=== PATIENT | female | born 1960 | race Caucasian/White ===

== ENCOUNTER → 2017-05-23 | Outpatient (CLI) | payer BC ==
[~2017-05-23] MED LIST: CHOLTAB3 PO; PRVC/20 PO
--- NOTE | 2017-05-24 15:17 | MAMMOGRAPHY REPORT ---
BILATERAL DIGITAL SCREENING MAMMOGRAM TOMOSYNTHESIS WITH CAD: 05/23/2017 CLINICAL HISTORY: Routine screening. TECHNIQUE: Breast tomosynthesis in addition to standard 2D mammography was performed. Current study was also evaluated with a Computer Aided Detection (CAD) system. COMPARISON: Comparison is made to exams dated: 05/20/2016 mammogram, 05/19/2015 mammogram, 4 mammogram, 05/17/2014 mammogram, 04/25/2013 mammogram, and 04/24/2012 mammogram - [facility]. BREAST COMPOSITION: The tissue of both breasts is heterogeneously dense, which may obscure small mas ses. FINDINGS: The parenchymal pattern is unchanged. No developing mass, architectural distortion or clus ter of suspicious microcalcifications is seen in either breast. IMPRESSION: ACR BI-RADS CATEGORY 2: BENIGN There is no mammographic evidence of malignancy. A 1 year screening mammogram is recommended. The pa tient will receive written notification of the results. Approximately 10% of breast cancers are not detected with mammography. A negative mammographic report should not delay biopsy if a clinically suggestive mass is present. Mireya Willis M.D. ay/:05/23/2017 16:37:49 Mail Opener: Niesha CORREA(R)(M), [facility] letter sent: Normal 1/2 BI-RADS Code: ACR BI-RADS Category 2: Benign
== END | disposition home or self-care (01) ==
LOC: C.MAMM 15:14
PROVIDERS: ATTEND Internal Medicine
DX: Z12.31 Encounter for screening mammogram for malignant neoplasm of breast (principal)

== ENCOUNTER → 2017-07-13 | Outpatient (CLI) | payer BC | END | disposition home or self-care (01) | LOC: C.PAPS 10:05 | PROVIDERS: ATTEND Obstetrics & Gynecology | DX: Z01.419 Encounter for gynecological examination (general) (routine) without abnormal findings (principal) ==

== ENCOUNTER 2024-03-03 10:28 | Inpatient (IN) ==
--- NOTE | 2024-03-03 11:58 | Emergency Department Note ---
Impression & Plan Abdominal pain, lower, Diverticulitis ED Provider Note NAME: JITENDRA GUTIERREZ AGE: 63 SEX: Female INFORMANT: Patient ED PROVIDER(S): Orestes Cook MD CHIEF COMPLAINT: Abdominal pain PLAN: Disposition: Admitted Outpatient prescription management: none Referral: None MEDICAL DECISION MAKING: Patient presented because of abdominal pain. She declined analgesia. CT imaging with contrast was ordered. Her laboratory testing was unremarkable. Patient was found to have worsening diverticulitis with possible mural abscess versus microperforation. Clinically she is doing well and is nonseptic. She does not have a surgical abdomen. She was given IV Zosyn. Due to the findings of worsening diverticulitis IV antibiotics are indicated. Patient and briefed. Consultation was made with Dr. Alberto Treviño of the [facility] service. Patient was evaluated in the ER for further management. Care/management discussed with: special events manager Level of care consideration(s): After review of the information above and other included data, I feel the patient requires escalation of care to admission Triage Nursing notes: reviewed and agree them. Vital Signs: reviewed and remarkable for no significant abnormalities Additional History obtained from: none Chronic Medical/Social Conditions affecting care: none Prior/ Outside/ External records reviewed: Primary care visit from 02/[address] imaging ordered patient started on Augmentin. Outpatient CT imaging revealed diverticulitis without abscess Differential Diagnosis: Worsening diverticulitis, renal colic, UTI, appendicitis, mesenteric ischemia, aortic pathology, infections, inflammatory bowel disease, PUD, biliary pathology, as well as other pathologies. Diagnostics, independently interpreted by me: ECG: none Cardiac Monitoring: none Medical decision rules: none Imaging studies: CT scan as above. I refer you to the EMR for further details. HPI: 63 year old Female arrives for evaluation of abdominal pain. This started earlier this week and is diagnosed as diverticulitis. Patient states the last 2 nights symptoms have worsened with more intense pain described as lower abdominal cramping. The patient also notes the following associated symptoms, poor appetite. The patient has been prescribed Augmentin for relieving factors. Current pain is rated as 6/10. Pt denies LOC, headache, fevers, chills, diaphoresis, visual changes, neck pain, chest pain, breathing difficulties, nausea, vomiting, back pain, melena, hematochezia, urinary symptoms, numbness, weakness, lymphadenopathy, rash, or other complaints.. PAST MEDICAL HISTORY: See Below, diverticulitis, diverticulosis PAST SURGICAL HISTORY: See Below, SOCIAL HISTORY: See Below, HOME MEDICATIONS: See Below ALLERGIES: See Below VITALS: See Below PHYSICAL EXAMINATION: GENERAL: Awake, alert, uncomfortable-appearing, in no distress HENT: Normocephalic, atraumatic. Oropharynx unremarkable. EYES: Normal conjunctiva. Sclera non-icteric. NECK: Inspection normal. Non-tender. Supple. No nuchal rigidity. FROM. No masses. RESPIRATORY: Clear to auscultation. No wheezes. No rales. Normal respiratory effort. CARDIAC: Normal rate. Normal rhythm. No murmurs. No rubs. Extremities warm and well perfused. Pulses equal. No JVD. GI: Soft, non-distended. Lower abdominal tenderness to palpation. No rebound or guarding. No masses. RECTAL: Deferred. MUSCULOSKELETAL: Atraumatic. Chest examination reveals no tenderness. The back is symmetrical on inspection without obvious abnormality. There is no CVA tenderness to palpation. No joint edema. LOWER EXTREMITIES: Calves are equal size bilaterally and non-tender. No edema. No discoloration. NEURO: Normal sensorium. No sensory or motor deficits noted. SKIN: No rash or jaundice noted. PROCEDURES: none CRITICAL CARE: none OBSERVATION NOTE: none Past Med/Surg History Problem List (Updated 03/03/24 @ 11:58 by Orestes Cook MD) Diverticulitis (Acute) Abdominal pain, lower (Acute) Leukopenia Postmenopausal History of colon polyps Bilateral bunions Hyperlipidemia (Acute) Diverticulosis (Acute) Carmichael angioma (Acute) Disc degeneration, lumbar (Acute) Esophageal reflux (Acute) Lichen simplex chronicus (Acute) Rectocele (Acute) Seborrheic keratosis (Acute) Medical History Postmenopausal Arthritis History of diverticulitis Hyperlipidemia Rectocele Seborrheic keratosis Diverticular disease Surgical History Ava teeth removed History of colonoscopy Family History Aunt Diabetes Sister Hypertension Leukemia Malignant neoplasm of uterus Myocardial infarction Mother Pure hypercholesterolemia Hypertension Family history of heart disease Myocardial infarction Father Heart disease Family history of heart disease Myocardial infarction Family/Other No problems noted. Other COPD (chronic obstructive pulmonary disease) No family history of adverse response to anesthesia Denies family history of Ovarian cancer Prostate cancer Breast cancer Colorectal cancer Social History Smoking Status: Never smoker Second Hand Exposure: Yes ( A CHILD); Do You Dip or Chew Tobacco: No; Hx Alcohol Use: Yes Alcohol type: beer, wine and hard liquor Hx Substance Use: No Preferred Language: Thai Communication Ability: Effective Hearing Ability: Normal Auto Locator Required: No Beliefs That Will Affect Care: None marital status: Current Living Situation: Spouse current occupational status: retired Feels Safe at Home: Yes Childhood Exposure to Second-Hand Smoke: Yes Diet: other Diet Comment: intermittent fasting caffeine: Yes Dental Care, Regularly: Yes Physical Activity Frequency: 3-4 Times per Week Seatbelt Use: always Sunscreen Use: Yes Assistive Devices: Contacts and Glasses Allergies Allergies Allergy/AdvReac Type Severity Reaction Status Date / Time latex Allergy Mild SKIN Verified 02/28/24 14:16 IRRITATION sulfamethoxazole AdvReac Mild Nausea Verified 02/28/24 14:16 trimethoprim AdvReac Mild Nausea Verified 02/28/24 14:16 Bactrim AdvReac Unknown Nausea Verified 11/14/14 22:40 Home Meds Home Medications Medication Instructions Recorded Confirmed cholecalciferol (vitamin D3) 50 2,000 unit PO QAM 10/11/18 03/03/24 mcg (2,000 unit) capsule (Vitamin D3) cyanocobalamin (vitamin B-12) 500 500 mcg PO QAM 07/22/21 03/03/24 mcg tablet melatonin 3 mg tablet 5 mg PO HS 09/02/22 03/03/24 Previous Rx's Medication Instructions Recorded diclofenac sodium 1 % topical gel 2 g topical QID PRN pain #100 grams 05/04/22 (Arthritis Pain (diclofenac)) rosuvastatin 20 mg tablet 20 mg PO DAILY #90 tabs 04/07/23 amoxicillin 875 mg-potassium 1 tab PO BID 10 days #20 tabs 02/28/24 clavulanate 125 mg tablet Results & Data (ED) Vital Signs Vital Signs - 24 hr 08/03/24 10:34 03/03/24 11:44 03/03/24 13:10 Temperature 36.8 C Temperature Source Oral Pulse Rate 83 Pulse Rate [Apical] 70 65 Pulse Rhythm Regular Pulse Strength Normal Respiratory Rate 18 12 14 Respiratory Effort / Characteristics Non-Labored Spontaneous Respiratory Depth Normal Respiratory Pattern Regular Blood Pressure 129/86 Blood Pressure [Right Arm] 141/82 H 131/75 Blood Pressure Mean 100 Blood Pressure Mean [Right Arm] 101 93 Blood Pressure Position Sitting Pulse Oximetry 99 96 95 Oxygen Delivery Method Room Air Room Air Room Air Sepsis Recent Fever Within 48 Hours No Sepsis New/Unexplained Change in Mental Status No Sepsis Action Taken by Nursing No Action Required 03/03/24 14:53 Temperature Temperature Source Pulse Rate Pulse Rate [Apical] 56 L Pulse Rhythm Pulse Strength Respiratory Rate 14 Respiratory Effort / Characteristics Respiratory Depth Respiratory Pattern Blood Pressure Blood Pressure [Right Arm] 132/79 Blood Pressure Mean Blood Pressure Mean [Right Arm] 96 Blood Pressure Position Pulse Oximetry 96 Oxygen Delivery Method Room Air Sepsis Recent Fever Within 48 Hours Sepsis New/Unexplained Change in Mental Status Sepsis Action Taken by Nursing Laboratory Data 03/03/24 11:40 03/03/24 11:40 Lab Results 03/03/24 03/03/24 Range/Units 11:40 11:45 WBC 8.02 (4.8-10.8) K/ul RBC 4.28 (4.20-5.40) M/uL Hgb 12.6 (12.0-16.0) g/dl Hct 37.8 (37.0-47.0) % MCV 88.3 (80.0-100.0) fL MCH 29.4 (25.0-34.0) pg MCHC 33.3 (32.0-36.0) g/dL RDW Std Deviation 40.4 (36.4-46.3) fL RDW Coeff of Brad 12.4 (11.5-14.5) % Plt Count 260 (130-400) K/uL MPV 10.2 (9.4-12.4) fL Immature Gran % (Auto) 0.1 % Neut % (Auto) 76.5 % Lymph % (Auto) 12.1 % [place] % (Auto) 10.6 % Eos % (Auto) 0.6 % Baso % (Auto) 0.1 % Neut # (Auto) 6.13 (1.40-6.50) K/uL Lymph # (Auto) 0.97 L (1.20-3.40) K/uL [place] # (Auto) 0.85 H (0.11-0.59) K/uL Eos # (Auto) 0.05 (0.00-0.50) K/uL Baso # (Auto) 0.01 (0.00-0.20) K/uL Immature Gran # (Auto) 0.01 (0.01-0.20) K/uL Sodium 135 L (136-145) mmol/L Potassium 4.0 (3.5-5.1) mmol/L Chloride 101 (98-107) mmol/L Carbon Dioxide 25 (21-32) mmol/L Anion Gap 9 (3-11) BUN 16 (6-23) mg/dl Creatinine 0.86 (0.6-1.2) mg/dl Est Cr Clr Drug Dosing 56.3 ml/min Est GFR ( Amer) 82.2 ml/min Est GFR (Non-Af Amer) 70.9 ml/min BUN/Creatinine Ratio 18.6 (10-20) Glucose 88 (70-99(Fasting)) mg/dl Calcium 9.2 (8.6-10.3) mg/dl Total Bilirubin 0.4 (0.2-1.0) mg/dl AST 23 (13-39) U/L ALT 15 (7-52) U/L Alkaline Phosphatase 86 (34-104) U/L Total Protein 7.6 (6.0-8.3) gm/dl Albumin 3.9 (3.4-5.0) gm/dl Globulin 3.7 (2.5-4.0) gm/dl Albumin/Globulin Ratio 1.1 (0.9-2) Lipase 21 (11-82) U/L Urine Color Dark Yellow Urine Appearance Clear (Clear) Urine pH 5.5 (4.5-7.5) Ur Specific [place] 1.027 (1.000-1.030) Urine Protein Trace H (Negative) Urine Glucose (UA) Negative (Negative) Urine Ketones Trace H (Negative) Urine Blood Negative (Negative) Urine Nitrite Negative (Negative) Urine Bilirubin 1+ H (Negative) Urine Urobilinogen Negative (Negative) Ur Leukocyte Esterase 2+ H (Negative) Urine WBC (Auto) 6-10 H (0-5) /hpf Urine RBC (Auto) 3-5 H (0-2) /hpf U Hyaline Cast (Auto) 0-2 (0-2) /lpf U Epithel Cells (Auto) 3-5 H (0-2) /hpf Urine Bacteria (Auto) None Seen (None Seen) Administered Medications Lactated Ringer's (Lr) 1,000 mls @ 100 mls/hr IV .Q10H PATRICIA Stop: 03/04/24 20:29 Last Admin: 03/03/24 14:51 Dose: 100 mls/hr Documented By: VESNA Discontinued Medications Piperacillin Sod/Tazobactam Sod (Zosyn) 4.5 gm in 100 mls @ 200 mls/hr IV NOW ONE Stop: 03/03/24 14:17 Last Infusion: 03/03/24 14:30 Dose: Infused Documented By: Admin: 03/03/24 14:00 Dose: 200 mls/hr Documented By: VESNA Ioversol (Optiray 320 100ml) 94 ml IV ONCE ONE Stop: 03/03/24 13:21 Last Admin: 03/03/24 13:20 Dose: 94 ml Documented By: LAINE Imaging Data Radiologist's Impression: Abdomen/Pelvis CT 03/03/24 10:56 CT abd pelvis oral and IV con CLINICAL HISTORY: L abd pain, diverticulitis on recent ct. ?Abscess TECHNIQUE: Helical axial images of the abdomen and pelvis were obtained and displayed. Automated dose lowering techniques and/or adjustment according to patient size were utilized for this exam. This exam was performed with intravenous contrast. CT DOSE: 701. mGy.cm COMPARISON: Comparison is made to CT abdomen pelvis 02/28/2024 FINDINGS: Lower chest: No acute abnormality. Liver: Focal fatty changes are noted about the falciform ligament. Gallbladder and biliary tree: A phrygian cap is incidentally noted. Gallbladder is otherwise unremarkable. No intra- or extrahepatic biliary ductal dilation. Pancreas: Unremarkable, no focal lesions. Spleen: Unremarkable. Adrenals: Unremarkable. Kidneys and ureters: Unremarkable. Bladder: Diffuse homogeneous wall thickening is seen. Reproductive organs: Unremarkable. Bowel: Diverticulosis is seen with wall thickening and a pericolonic fluid collection with surrounding fat stranding in the sigmoid flexure. The appendix is normal. Lymph nodes Retroperitoneal: Unremarkable. Pelvic: Unremarkable. Mesenteric: Unremarkable. Peritoneum: Increased vascularity and fat stranding is seen in the pelvis. There is a 28 x 16 mm fluid collection superior to the inflamed diverticulum in the sigmoid colon. Vessels: Unremarkable. Abdominal wall: Unremarkable. Bones: Degenerative changes in the visualized spine. IMPRESSION: Findings compatible with diverticulitis, now with a mural abscess versus contained perforation. ACT 112: Negative or not required by law. Electronically signed by: Ramu Moreland M.D. 03/03/2024 1:33 PM Discharge Plan Visit Data Chief Complaint: Abdominal Pain Stated Complaint: ABDOMINAL PAIN ED Provider: Orestes Cook Discharge Problem: Abdominal pain, lower, Diverticulitis Forms Stand Alone Forms: [employer] Prescriptions Prescriptions: No Action rosuvastatin 20 mg tablet 20 mg PO DAILY Qty: 90 3RF diclofenac sodium [Arthritis Pain (diclofenac)] 1 % gel 2 g topical QID PRN (Reason: pain) Qty: 100 2RF Rx Instructions: no fill history available apply to single elbow, wrist or hand; for hand includes palm/fingers/back of hand amoxicillin-pot clavulanate 875-125 mg tablet 1 tab PO BID 10 Days Qty: 20 0RF cholecalciferol (vitamin D3) [Vitamin D3] 2,000 unit Capsule 2,000 unit PO QAM Rx Instructions: otc, unable to verify cyanocobalamin (vitamin B-12) 500 mcg Tablet 500 mcg PO QAM Rx Instructions: otc, unable to verify melatonin 3 mg tablet 5 mg PO HS Rx Instructions: otc, unable to verify Referrals Referrals: Jorge Rivera MD [Primary Care Provider] -
[2024-03-03 12:11] LABS: Basophils # (auto) 0.01 K/uL (0.00-0.20); Basophils % (auto) 0.1 %; Eosinophils # (auto) 0.05 K/uL (0.00-0.50); Eosinophils % (auto) 0.6 %; Hematocrit (blood only) 37.8 % (37.0-47.0); Hemoglobin 12.6 g/dl (12.0-16.0); Immature Granulocytes # (auto) 0.01 K/uL (0.01-0.20); Immature Granulocytes % (auto) 0.1 %; Lymphocytes # (auto) 0.97 K/uL (1.20-3.40); Lymphocytes % (auto) 12.1 %; Mean Corpuscular Hemoglobin 29.4 pg (25.0-34.0); Mean Corpuscular Hgb Conc 33.3 g/dL (32.0-36.0); Mean Corpuscular Volume 88.3 fL (80.0-100.0); Mean Platelet Volume 10.2 fL (9.4-12.4); Monocytes # (auto) 0.85 K/uL (0.11-0.59); Monocytes % (auto) 10.6 %; Neutrophils # (auto) 6.13 K/uL (1.40-6.50); Neutrophils % (auto) 76.5 %; Platelet Count 260 K/uL (130-400); RDW Coefficient of Variation 12.4 % (11.5-14.5); RDW Standard Deviation 40.4 fL (36.4-46.3); Red Blood Count 4.28 M/uL (4.20-5.40); White Blood Count 8.02 K/ul (4.8-10.8)
[2024-03-03 12:12] LABS: Appearance Urine Clear (Clear); Bacteria Urine Automated None Seen (None Seen); Bilirubin Urine 1+ (Negative); Blood Urine Negative (Negative); Cast Urine Automated 0-2 /lpf (0-2); Color Urine Dark Yellow; Glucose Urine UA Negative (Negative); Ketones Urine Trace (Negative); Leukocyte Esterase Urine 2+ (Negative); Nitrite Urine Negative (Negative); Protein Urine Trace (Negative); Specific Gravity Urine 1.027 (1.000-1.030); Urobilinogen Urine Negative (Negative); pH Urine 5.5 (4.5-7.5)
[2024-03-03 12:13] LABS: Albumin Globulin Ratio 1.1 (0.9-2); Albumin Level 3.9 gm/dl (3.4-5.0); BUN Creatinine Ratio 18.6 (10-20); Bilirubin,Total 0.4 mg/dl (0.2-1.0); Calcium 9.2 mg/dl (8.6-10.3); Creatinine Clr Calc Pharmacy 56.3 ml/min; Est GFR (African American) 82.2 ml/min; Est GFR (Non-African American) 70.9 ml/min; Globulin 3.7 gm/dl (2.5-4.0); Total Protein 7.6 gm/dl (6.0-8.3)
[2024-03-03] MEDS: OPTIRAY 320 100ml IV ONE (13:20)
--- NOTE | 2024-03-03 13:34 | CT Scan Report ---
CT abd pelvis oral and IV con CLINICAL HISTORY: L abd pain, diverticulitis on recent ct. ?Abscess TECHNIQUE: Helical axial images of the abdomen and pelvis were obtained and displayed. Automated dose lowering techniques and/or adjustment according to patient size were utilized for this exam. This e xam was performed with intravenous contrast. CT DOSE: 701. mGy.cm COMPARISON: Comparison is made to CT abdomen pelvis 02/28/2024 FINDINGS: Lower chest: No acute abnormality. Liver: Focal fatty changes are noted about the falciform ligament. Gallbladder and biliary tree: A phrygian cap is incidentally noted. Gallbladder is otherwise unremark able. No intra- or extrahepatic biliary ductal dilation. Pancreas: Unremarkable, no focal lesions. Spleen: Unremarkable. Adrenals: Unremarkable. Kidneys and ureters: Unremarkable. Bladder: Diffuse homogeneous wall thickening is seen. Reproductive organs: Unremarkable. Bowel: Diverticulosis is seen with wall thickening and a pericolonic fluid collection with surroundin g fat stranding in the sigmoid flexure. The appendix is normal. Lymph nodes Retroperitoneal: Unremarkable. Pelvic: Unremarkable. Mesenteric: Unremarkable. Peritoneum: Increased vascularity and fat stranding is seen in the pelvis. There is a 28 x 16 mm flui d collection superior to the inflamed diverticulum in the sigmoid colon. Vessels: Unremarkable. Abdominal wall: Unremarkable. Bones: Degenerative changes in the visualized spine. IMPRESSION: Findings compatible with diverticulitis, now with a mural abscess versus contained perforation. ACT 112: Negative or not required by law. Electronically signed by: Ramu Moreland M.D. 03/03/2024 1:33 PM
[2024-03-03] MEDS: PIPERACILLIN/TAZOBACTAM 4.5 GM/100 ML BAG IV ONE (14:00)
--- NOTE | 2024-03-03 14:01 | History & Physical Report ---
Date of Service March 03, 2024 Assessment & Plan (1) Diverticulitis: Plan: Worsening abdominal pain that began on Sunday 02/25 History of diverticulitis Patient was diagnosed with diverticulitis outpatient, and was placed on amoxicillin BID on 02/27 Failure of outpatient treatment A/P CT revealed diverticulitis with mural abscess versus contained perforation No leukocytosis on arrival; however patient reports fevers up to 100 degrees Fahrenheit at home Supportive care Keep n.p.o. for now, and advance to trial of clear liquid diet as tolerated LR at 100 mL/hr x 3 L Acetaminophen as needed for pain/fever Ciprofloxacin 400 mg IV q12h Metronidazole 500 mg IV q8h A.m. CBC, BMP, mag (2) Hyperlipidemia: Plan: Continue rosuvastatin Plan Disposition: Admit to [facility] Full code N.p.o. for now VTE PPx: Lovenox 40mg SQ q24h History of Present Illness Chief Complaint: Abdominal Pain Primary Care Provider: Jorge Rivera MD Brianne is a pleasant 63-year-old female with PMH of rectocele, esophageal reflux, diverticulosis, hyperlipidemia, and lichen simplex chronicus. She presented for worsening abdominal pain that has been present since Sunday 02/25. The pain is located in her right lower abdomen transversely across both quadrants. It began as abdominal discomfort, but has gradually worsened. She went to the doctors on Tuesday 02/27 and was prescribed Augmentin. However there might have been a mixup at the pharmacy as she has been taking amoxicillin twice daily. Patient then began to develop fevers on Thursday 03/01 (low-grade, around 100 F). Patient has been taking Tylenol which helps with with the fever and abdominal cramping. She does have a history of diverticulitis in the past; last episode was in 2018. She rates her abdominal pain 0/10 at present, but 8/10 at worst. The pain waxes and wanes, and she characterizes as a "childbirth"-like cramping. Pain is exacerbated after eating and when she lays on her right side. No history of abdominal surgeries. Patient is still passing gas. Last BM was yesterday; she reports she had small/hard stool. She has had ongoing constipation. Patient denies smoking, tobacco use, recent alcohol use. Patient's vitals are stable at time of mission. ED course: Zosyn 4.5 g IV ROS: Patient endorses intermittent fever, chills, fatigue, WHITE, dry cough, low transverse abdominal pain, constipation, and bloating. Patient denies night-sweats, dizziness, lightheadedness, chest pain, SOB, chest palpitations, N/V/D, changes in urinary habits, burning with urination, or blood in the urine/stool. Allergies Allergy/AdvReac Type Severity Reaction Status Date / Time latex Allergy Mild SKIN Verified 02/28/24 14:16 IRRITATION sulfamethoxazole AdvReac Mild Nausea Verified 02/28/24 14:16 trimethoprim AdvReac Mild Nausea Verified 02/28/24 14:16 Bactrim AdvReac Unknown Nausea Verified 11/14/14 22:40 Home Medications Medication Instructions Recorded Confirmed Type cholecalciferol (vitamin D3) 50 2,000 unit PO QAM 10/11/18 03/03/24 History mcg (2,000 unit) capsule (Vitamin D3) cyanocobalamin (vitamin B-12) 500 500 mcg PO QAM 07/22/21 03/03/24 History mcg tablet diclofenac sodium 1 % topical gel 2 g topical QID PRN pain #100 grams 05/04/22 03/03/24 Rx (Arthritis Pain (diclofenac)) melatonin 3 mg tablet 5 mg PO HS 09/02/22 03/03/24 History rosuvastatin 20 mg tablet 20 mg PO DAILY #90 tabs 04/07/23 03/03/24 Rx amoxicillin 875 mg-potassium 1 tab PO BID 10 days #20 tabs 02/28/24 03/03/24 Rx clavulanate 125 mg tablet Past Med/Surg History Problem List (Updated 03/03/24 @ 11:58 by Orestes Cook MD) Diverticulitis (Acute) Abdominal pain, lower (Acute) Leukopenia Postmenopausal History of colon polyps Bilateral bunions Hyperlipidemia (Acute) Diverticulosis (Acute) Carmichael angioma (Acute) Disc degeneration, lumbar (Acute) Esophageal reflux (Acute) Lichen simplex chronicus (Acute) Rectocele (Acute) Seborrheic keratosis (Acute) Medical History Postmenopausal Arthritis History of diverticulitis Hyperlipidemia Rectocele Seborrheic keratosis Diverticular disease Surgical History [place] teeth removed History of colonoscopy Family History Aunt Diabetes Sister Hypertension Leukemia Malignant neoplasm of uterus Myocardial infarction Mother Pure hypercholesterolemia Hypertension Family history of heart disease Myocardial infarction Father Heart disease Family history of heart disease Myocardial infarction Family/Other No problems noted. 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 Beliefs That Will Affect Care: None marital status: Current Living Situation: Spouse current occupational status: retired Other Information That Helps Us Care for You: No Feels Safe at Home: Yes Childhood Exposure to Second-Hand Smoke: Yes Diet: other Diet Comment: intermittent fasting caffeine: Yes Dental Care, Regularly: Yes Physical Activity Frequency: 3-4 Times per Week Seatbelt Use: always Sunscreen Use: Yes Assistive Devices: Contacts Review of Systems Review of Systems: See HPI above Physical Exam Physical Exam: General: no acute distress; pleasant affect; non-toxic appearing; well- nourished; cooperative; SpO2 95% on RA HEENT: normocephalic, atraumatic; no scleral icterus; PERRLA w/ EOMs intact; vision and hearing grossly intact Neck: supple; no lymphadenopathy; trachea midline Skin: warm, dry without signs of tenting; no cyanosis; no rashes, bruising, lesions, or erythema noted CV: chest wall NTP; RRR; S1/S2 normal; no murmurs/rubs/gallops; pulses intact and symmetric at radial, DP, and PT Lungs: no acute respiratory distress; symmetrical chest wall expansion; clear breath sounds across all lung giordano w/o adventitious sounds; no wheezing ABD: Soft; RLQ and LLQ are TTP: BS present; no rebound/guarding; no distention MSK: no tics or fasciculations; no edema noted in the LEs b/l, nonerythematous Neuro: A&Ox3; normal mood and affect; fluent speech; no focal deficits; sensation grossly intact in the LEs b/l Results & Data Results & Data Vital Signs (Past 12 Hours) Vital Signs Temp Pulse Pulse Resp BP BP Pulse Ox 03/03/24 13:10 65 14 131/75 95 03/03/24 11:44 70 12 141/82 H 96 03/03/24 10:34 36.8 C 83 18 129/86 99 O2 Del Method 03/03/24 13:10 Room Air 03/03/24 11:44 Room Air 03/03/24 10:34 Room Air Laboratory Results Abnormal lab results 03/03/24 03/03/24 Range/Units 11:40 11:45 Lymph # (Auto) 0.97 L (1.20-3.40) K/uL Heard # (Auto) 0.85 H (0.11-0.59) K/uL Sodium 135 L (136-145) mmol/L Urine Protein Trace H (Negative) Urine Ketones Trace H (Negative) Urine Bilirubin 1+ H (Negative) Ur Leukocyte Esterase 2+ H (Negative) Urine WBC (Auto) 6-10 H (0-5) /hpf Urine RBC (Auto) 3-5 H (0-2) /hpf U Epithel Cells (Auto) 3-5 H (0-2) /hpf Diagnostic Findings Abdomen/Pelvis CT 03/03/24 10:56 CT abd pelvis oral and IV con CLINICAL HISTORY: L abd pain, diverticulitis on recent ct. ?Abscess TECHNIQUE: Helical axial images of the abdomen and pelvis were obtained and displayed. Automated dose lowering techniques and/or adjustment according to patient size were utilized for this exam. This exam was performed with intravenous contrast. CT DOSE: 701. mGy.cm COMPARISON: Comparison is made to CT abdomen pelvis 02/28/2024 FINDINGS: Lower chest: No acute abnormality. Liver: Focal fatty changes are noted about the falciform ligament. Gallbladder and biliary tree: A phrygian cap is incidentally noted. Gallbladder is otherwise unremarkable. No intra- or extrahepatic biliary ductal dilation. Pancreas: Unremarkable, no focal lesions. Spleen: Unremarkable. Adrenals: Unremarkable. Kidneys and ureters: Unremarkable. Bladder: Diffuse homogeneous wall thickening is seen. Reproductive organs: Unremarkable. Bowel: Diverticulosis is seen with wall thickening and a pericolonic fluid collection with surrounding fat stranding in the sigmoid flexure. The appendix is normal. Lymph nodes Retroperitoneal: Unremarkable. Pelvic: Unremarkable. Mesenteric: Unremarkable. Peritoneum: Increased vascularity and fat stranding is seen in the pelvis. There is a 28 x 16 mm fluid collection superior to the inflamed diverticulum in the sigmoid colon. Vessels: Unremarkable. Abdominal wall: Unremarkable. Bones: Degenerative changes in the visualized spine. IMPRESSION: Findings compatible with diverticulitis, now with a mural abscess versus contained perforation. ACT 112: Negative or not required by law. Electronically signed by: Ramu Moreland M.D. 03/03/2024 1:33 PM ECG Additional Comments: ECG ordered, pending Code Status & VTE Plan Code Status Full code VTE Prophylaxis Plan VTE Prophylaxis will be ordered: Yes Supervising Physician Co-Signing Physician Notes Attending addendum: I have physically seen this patient, have supervised the CLIFTON's activities, and agree with the H&P unless as otherwise noted. Assessment and Plan: Diverticulitis- Patient has been started on amoxicillin twice daily on 02/27 A diagnosis in the outpatient setting Due to worsening abdominal pain patient presented to the ED for assessment this evening CT scan abdomen pelvis shows diverticulitis, now with mural abscess versus contained perforation N.p.o. LR at 100 mL/h Acetaminophen 1 g IV every 8 hours as needed for mild pain or fever Cipro 400 mg IV 12 hours Metronidazole 500 mg IV every 8 hours Zofran 4 mg IV every 6 hours as needed Pantoprazole 40 mg IV daily Follow serial CBC with differential, CHEM PG Care Time/CCT Total # of Minutes Spent Total Time Spent with Patient: Total time spent is greater than 50% in coordination of care (as documented) at patient's floor/unit and/or counseling patient: C[place] [address] INT INP/OBS CARE 255MIN Patient Type Established History Comprehensive Exam Comprehensive Medical Decision Making Moderate Complexity Diagnoses Diverticulitis K57.92 Hyperlipidemia E78.5
[2024-03-03] MEDS: LACTATED RINGER'S 1,000 ML IV SCH (14:51)
[2024-03-03] MEDS ORDERED: HYDROmorphone INJ 1 MG/ML SYRINGE IV PRN (16:54)
[2024-03-03] MEDS ORDERED: HYDROmorphone INJ 0.5 MG/0.5 ML SYR IV PRN (16:54)
[2024-03-03] MEDS ORDERED: DICLOFENAC SOD 1% GEL 100 GM TUBE EXT PRN (16:54)
[2024-03-03] MEDS: ENOXAPARIN INJ 40 MG/0.4 ML SYR SQ SCH (20:12)
[2024-03-03] MEDS: CIPROFLOXACIN / D5W 400 MG/200 ML BAG IV SCH (20:12)
[2024-03-03] MEDS: metroNIDAZOLE 500 MG/100 ML BAG IV SCH (20:12)
[2024-03-03] MEDS ORDERED: MELATONIN 3 MG TAB PO SCH (21:00)
[2024-03-03] MEDS ORDERED: ROSUVASTATIN CALCIUM 20 MG TAB PO SCH (21:00)
[2024-03-03] MEDS: LACTATED RINGER'S 1,000 ML IV ONE (22:53)
[2024-03-04] MEDS: ACETAMINOPHEN 1,000 MG/100 ML VIAL IV PRN (03:04)
[2024-03-04] MEDS: MELATONIN 3 MG TAB PO PRN (03:19)
[2024-03-04 05:51] LABS: Basophils # (auto) 0.02 K/uL (0.00-0.20); Basophils % (auto) 0.3 %; Eosinophils # (auto) 0.01 K/uL (0.00-0.50); Eosinophils % (auto) 0.1 %; Hematocrit (blood only) 31.8 % (37.0-47.0); Hemoglobin 10.5 g/dl (12.0-16.0); Immature Granulocytes # (auto) 0.02 K/uL (0.01-0.20); Immature Granulocytes % (auto) 0.3 %; Lymphocytes # (auto) 1.13 K/uL (1.20-3.40); Lymphocytes % (auto) 16.2 %; Mean Corpuscular Hemoglobin 28.9 pg (25.0-34.0); Mean Corpuscular Volume 87.6 fL (80.0-100.0); Monocytes # (auto) 0.64 K/uL (0.11-0.59); Monocytes % (auto) 9.2 %; Neutrophils # (auto) 5.17 K/uL (1.40-6.50); Neutrophils % (auto) 73.9 %; Platelet Count 225 K/uL (130-400); RDW Coefficient of Variation 12.2 % (11.5-14.5); RDW Standard Deviation 39.5 fL (36.4-46.3); Red Blood Count 3.63 M/uL (4.20-5.40); White Blood Count 6.99 K/ul (4.8-10.8)
[2024-03-04 06:06] LABS: BUN Creatinine Ratio 14.1 (10-20); Calcium 8.8 mg/dl (8.6-10.3); Est GFR (African American) 83.3 ml/min; Est GFR (Non-African American) 71.9 ml/min; Magnesium 1.8 mg/dl (1.7-2.4); Potassium 3.8 mmol/L (3.5-5.1)
--- NOTE | 2024-03-04 07:06 | Electrocardiogram Report ---
Test Reason : Blood Pressure : / mmHG Vent. Rate : 060 BPM Atrial Rate : 060 BPM P-R Int : 168 ms QRS Dur : 072 ms QT Int : 414 ms P-R-T Axes : 062 010 054 degrees QTc Int : 414 ms Normal sinus rhythm Normal ECG When compared with ECG of 14-NOV-2014 19:22, No significant change was found Confirmed by Jorge Tafoya ([id number]) on 03/04/2024 7:06:31 AM Referred By: REFERRED SELF Confirmed By:Morgan Tafoya
--- NOTE | 2024-03-04 10:19 | Surgery Consultation ---
Date of Consultation March 04, 2024 Assessment & Plan (1) Diverticulitis: Diverticulitis unresponsive to outpatient oral medications, possible small intramural abscess, no indication for surgery at this time Continue IV antibiotics Advance to clear liquids Will need 10 to 14-day course of antibiotics Follow-up as outpatient History of Present Illness Attending Physician: Erlin Michael MD History of Present Illness Admitted with diverticulitis with intramural abscess. Started having symptoms last week treated as an outpatient with oral antibiotics. Symptoms progressed. CT scan yesterday concerning for intramural abscess. Prior episode in 2018 treated with outpatient oral antibiotics. Recent colonoscopy last year per her report. No prior abdominal surgeries. Otherwise healthy. Feeling better since admission. Allergies Allergy/AdvReac Type Severity Reaction Status Date / Time latex Allergy Mild SKIN Verified 02/28/24 14:16 IRRITATION sulfamethoxazole AdvReac Mild Nausea Verified 02/28/24 14:16 trimethoprim AdvReac Mild Nausea Verified 02/28/24 14:16 Bactrim AdvReac Unknown Nausea Verified 11/14/14 22:40 Home Medications Medication Instructions Recorded Confirmed Type cholecalciferol (vitamin D3) 50 2,000 unit PO QAM 10/11/18 03/03/24 History mcg (2,000 unit) capsule (Vitamin D3) cyanocobalamin (vitamin B-12) 500 500 mcg PO QAM 07/22/21 03/03/24 History mcg tablet diclofenac sodium 1 % topical gel 2 g topical QID PRN pain #100 grams 05/04/22 03/03/24 Rx (Arthritis Pain (diclofenac)) melatonin 3 mg tablet 5 mg PO HS 09/02/22 03/03/24 History rosuvastatin 20 mg tablet 20 mg PO DAILY #90 tabs 04/07/23 03/03/24 Rx amoxicillin 875 mg-potassium 1 tab PO BID 10 days #20 tabs 02/28/24 03/03/24 Rx clavulanate 125 mg tablet Patient History Medical History Postmenopausal Arthritis History of diverticulitis Hyperlipidemia Rectocele Seborrheic keratosis Diverticular disease Surgical History [place] teeth removed History of colonoscopy Family History Aunt Diabetes Sister Hypertension Leukemia Malignant neoplasm of uterus Myocardial infarction Mother Pure hypercholesterolemia Hypertension Family history of heart disease Myocardial infarction Father Heart disease Family history of heart disease Myocardial infarction Family/Other No problems noted. Other COPD (chronic obstructive pulmonary disease) No family history of adverse response to anesthesia Denies family history of Ovarian cancer Prostate cancer Breast cancer Colorectal cancer Social History Smoking Status: Never smoker Second Hand Exposure: Yes ( A CHILD); Do You Dip or Chew Tobacco: No; Hx Alcohol Use: No Hx Substance Use: No Preferred Language: Palestinian Communication Ability: Effective Hearing Ability: Normal Gear Technician Required: No Beliefs That Will Affect Care: None marital status: Current Living Situation: Spouse current occupational status: retired Other Information That Helps Us Care for You: No Feels Safe at Home: Yes Childhood Exposure to Second-Hand Smoke: Yes Diet: other Diet Comment: intermittent fasting caffeine: Yes Dental Care, Regularly: Yes Physical Activity Frequency: 3-4 Times per Week Seatbelt Use: always Sunscreen Use: Yes Assistive Devices: Contacts Review of Systems Review of Systems: All systems reviewed & are unremarkable except as noted in HPI & below Physical Exam Respiratory: normal respiratory effort, lungs clear to auscultation Cardiovascular: RRR, no murmur, no edema Gastrointestinal (Abdomen): Percussion/Palpation: + abdomen tender (Mild pelvic and left lower quadrant tenderness palpation) and abdomen soft; no guarding and abdomen not rigid Results & Data Vital Signs (Past 12 Hours) Vital Signs Temp Pulse Resp BP Pulse Ox O2 Del Method 03/04/24 07:26 36.6 C 61 17 123/80 96 Room Air 03/04/24 01:50 79 144/81 H 03/03/24 23:54 70 17 112/70 94 Room Air 03/03/24 22:24 37.0 C 69 18 94/61 L 94 Room Air Laboratory Results Laboratory Results - last 24 hr 03/03/24 03/03/24 03/04/24 11:40 11:45 05:27 WBC 8.02 6.99 RBC 4.28 3.63 L Hgb 12.6 10.5 L Hct 37.8 31.8 L MCV 88.3 87.6 MCH 29.4 28.9 MCHC 33.3 33.0 RDW Std Deviation 40.4 39.5 RDW Coeff of Brad 12.4 12.2 Plt Count 260 225 MPV 10.2 10.0 Immature Gran % (Auto) 0.1 0.3 Neut % (Auto) 76.5 73.9 Lymph % (Auto) 12.1 16.2 Stanley % (Auto) 10.6 9.2 Eos % (Auto) 0.6 0.1 Baso % (Auto) 0.1 0.3 Neut # (Auto) 6.13 5.17 Lymph # (Auto) 0.97 L 1.13 L Stanley # (Auto) 0.85 H 0.64 H Eos # (Auto) 0.05 0.01 Baso # (Auto) 0.01 0.02 Immature Gran # (Auto) 0.01 0.02 Sodium 135 L 136 Potassium 4.0 3.8 Chloride 101 104 Carbon Dioxide 25 25 Anion Gap 9 7 BUN 16 12 Creatinine 0.86 0.85 Est Cr Clr Drug Dosing 56.3 57.0 Est GFR ( Amer) 82.2 83.3 Est GFR (Non-Af Amer) 70.9 71.9 BUN/Creatinine Ratio 18.6 14.1 Glucose 88 101 H Calcium 9.2 8.8 Magnesium 1.8 Total Bilirubin 0.4 AST 23 ALT 15 Alkaline Phosphatase 86 Total Protein 7.6 Albumin 3.9 Globulin 3.7 Albumin/Globulin Ratio 1.1 Lipase 21 Urine Color Dark Yellow Urine Appearance Clear Urine pH 5.5 Ur Specific [place] 1.027 Urine Protein Trace H Urine Glucose (UA) Negative Urine Ketones Trace H Urine Blood Negative Urine Nitrite Negative Urine Bilirubin 1+ H Urine Urobilinogen Negative Ur Leukocyte Esterase 2+ H Urine WBC (Auto) 6-10 H Urine RBC (Auto) 3-5 H U Hyaline Cast (Auto) 0-2 U Epithel Cells (Auto) 3-5 H Urine Bacteria (Auto) None Seen Diagnostic Findings CT personally reviewed and interpreted agree with the assessment of diverticulitis with possible large diverticulum versus intramural abscess, less likely contained perforation CT abd pelvis oral and IV con CLINICAL HISTORY: L abd pain, diverticulitis on recent ct. ?Abscess TECHNIQUE: Helical axial images of the abdomen and pelvis were obtained and displayed. Automated dose lowering techniques and/or adjustment according to patient size were utilized for this exam. This exam was performed with intravenous contrast. CT DOSE: 701. mGy.cm COMPARISON: Comparison is made to CT abdomen pelvis 02/28/2024 FINDINGS: Lower chest: No acute abnormality. Liver: Focal fatty changes are noted about the falciform ligament. Gallbladder and biliary tree: A phrygian cap is incidentally noted. Gallbladder is otherwise unremarkable. No intra- or extrahepatic biliary ductal dilation. Pancreas: Unremarkable, no focal lesions. Spleen: Unremarkable. Adrenals: Unremarkable. Kidneys and ureters: Unremarkable. Bladder: Diffuse homogeneous wall thickening is seen. Reproductive organs: Unremarkable. Bowel: Diverticulosis is seen with wall thickening and a pericolonic fluid collection with surrounding fat stranding in the sigmoid flexure. The appendix is normal. Lymph nodes Retroperitoneal: Unremarkable. Pelvic: Unremarkable. Mesenteric: Unremarkable. Peritoneum: Increased vascularity and fat stranding is seen in the pelvis. There is a 28 x 16 mm fluid collection superior to the inflamed diverticulum in the sigmoid colon. Vessels: Unremarkable. Abdominal wall: Unremarkable. Bones: Degenerative changes in the visualized spine. IMPRESSION: Findings compatible with diverticulitis, now with a mural abscess versus contained perforation. PG Care Time/CCT Total # of Minutes Spent Total Time Spent with Patient: Total time spent is greater than 50% in coordination of care (as documented) at patient's floor/unit and/or counseling patient: Coding Level of Care Code 95462 INT INP/OBS CARE 2/55MIN Diagnoses Diverticulitis K57.92
[2024-03-04] MEDS: PANTOprazole 40 MG in SYRINGE 0 ML IV SCH (10:45)
--- NOTE | 2024-03-04 12:00 | Hospitalist Progress Note ---
Date of Service March 04, 2024 Assessment & Plan (1) Diverticulitis: Plan: Diagnosed with acute diverticulitis outpatient, started on oral Augmentin However failed outpatient management. Admitted with worsening abdominal pain. A/P CT revealed diverticulitis with mural abscess versus contained perforation No leukocytosis on arrival; however patient reports fevers up to 100 degrees Fahrenheit at home General surgery consulted, no surgical needs for now Continue Ciprofloxacin 400 mg IV q12,Metronidazole 500 mg IV q8h, Will need about 10 to 14 days of antibiotics per surgery Clear liquid diet, advance as tolerated (2) Hyperlipidemia: Plan: Continue rosuvastatin Plan Disposition: Continue hospitalization Full code N.p.o. for now VTE PPx: Lovenox 40mg SQ q24h Admission and Anticipated Discharge Date Admission Date: March 03, 2024 Subjective Patient seen and examined, lying quietly in bed, said abdominal pain is much improved, denies fever or chills overnight. Review of Systems Review of Systems: All systems reviewed are negative, apart from the ones contained in the history. Physical Exam Physical Exam: The patient is awake, alert and oriented 3, well developed and well nourished, normocephalic and atraumatic, lying in bed and in no acute distress. HEENT--PERRL, EOMI, mucous membranes and oropharynx mildly dry Neck--supple. No JVD. No bruits. Thyroid normal, trachea midline, no adenopathy. Heart--normal S1 and S2. No murmurs, rubs or gallops. Lungs--clear bilaterally, no respiratory distress, no accessory muscle use. Abdomen--normal bowel sounds and soft. Extremities--no cyanosis or clubbing. No edema. Dermatologic--normal skin turgor, normal color, no abnormal lymph nodes, no rash. Neurologic--cranial nerves II through XII grossly intact. Rheumatologic--normal range of motion. Psychiatric--normal affect. Results & Data Results & Data Vital Signs (Past 12 Hours) Vital Signs Temp Pulse Resp BP Pulse Ox O2 Del Method 03/04/24 07:26 97.9 F 61 17 123/80 96 Room Air 03/04/24 01:50 79 144/81 H PG Care Time/CCT Total # of Minutes Spent Total Time Spent with Patient: Total time spent is greater than 50% in coordination of care (as documented) at patient's floor/unit and/or counseling patient: Coding Level of Care Code 05379 SUB INP/OBS CARE 35MIN Diagnoses Diverticulitis K57.92 Hyperlipidemia E78.5 Time Spent (min) 35
[2024-03-05 06:11] LABS: Basophils # (auto) 0.01 K/uL (0.00-0.20); Basophils % (auto) 0.2 %; Eosinophils # (auto) 0.03 K/uL (0.00-0.50); Eosinophils % (auto) 0.5 %; Hematocrit (blood only) 30.4 % (37.0-47.0); Hemoglobin 10.3 g/dl (12.0-16.0); Immature Granulocytes # (auto) 0.01 K/uL (0.01-0.20); Immature Granulocytes % (auto) 0.2 %; Lymphocytes # (auto) 1.16 K/uL (1.20-3.40); Lymphocytes % (auto) 20.2 %; Mean Corpuscular Hemoglobin 29.2 pg (25.0-34.0); Mean Corpuscular Hgb Conc 33.9 g/dL (32.0-36.0); Mean Corpuscular Volume 86.1 fL (80.0-100.0); Mean Platelet Volume 9.9 fL (9.4-12.4); Monocytes # (auto) 0.57 K/uL (0.11-0.59); Monocytes % (auto) 9.9 %; Neutrophils # (auto) 3.95 K/uL (1.40-6.50); Platelet Count 233 K/uL (130-400); RDW Coefficient of Variation 12.1 % (11.5-14.5); RDW Standard Deviation 38.4 fL (36.4-46.3); Red Blood Count 3.53 M/uL (4.20-5.40); White Blood Count 5.73 K/ul (4.8-10.8)
[2024-03-05 06:31] LABS: BUN Creatinine Ratio 9.9 (10-20); Calcium 8.4 mg/dl (8.6-10.3); Creatinine Clr Calc Pharmacy 68.2 ml/min; Est GFR (African American) 103.6 ml/min; Est GFR (Non-African American) 89.4 ml/min; Potassium 3.6 mmol/L (3.5-5.1)
[2024-03-05] MEDS: ONDANSETRON INJ 2 MG/ML 2 ML VIAL IV PRN (10:16)
--- NOTE | 2024-03-05 11:22 | Surgery Progress Note ---
Date of Service March 05, 2024 Assessment & Plan (1) Diverticulitis: Plan: Pt here w/ diverticulitis w/ possible intramural abscess vs. contained perforation after failing outpt abx therapy wb 5.7. vitals stable and patient afebrile overall patient is feeling better, having + bowel function. no n/v will advance to fulls and see how she fairs continue IV abx while in house OOB/ambulating no indications for surgical intervention at this point Had recent colonoscopy Admission and Anticipated Discharge Date Admission Date: March 03, 2024 Supervising Physician Co-Signing Physician Notes Patient seen examined, labs reviewed, agree with above. Admitted with diverticulitis with failure of outpatient management and possible intramural abscess. Feeling better, however did have significant pain with bowel movement overnight. Afebrile with stable vitals. Abdomen soft, minimally tender to palpation pelvis and lower left quadrant. WBC normal. Will advance to full liquids, continue IV antibiotics. Subjective Patient had some pain w/ a BM yesterday. Otherwise she is feeling fairly well. tolerating clears, hungry for more. no nausea/vomiting. Physical Exam Physical Exam: awake/alert, no distress Respiratory: normal respiratory effort Gastrointestinal (Abdomen): Percussion/Palpation: + abdomen tender (some discomfort in LLQ/pelvis) and abdomen soft Results & Data Vital Signs (Past 12 Hours) Vital Signs Temp Pulse Resp BP Pulse Ox O2 Del Method 03/05/24 08:01 98.1 F 65 16 110/64 96 Room Air PG Care Time/CCT Total # of Minutes Spent Total Time Spent with Patient: Total time spent is greater than 50% in coordination of care (as documented) at patient's floor/unit and/or counseling patient: Coding Level of Care Code 46884 SUB INP/OBS CARE 08/25MIN Diagnoses Diverticulitis K57.92
[2024-03-05 11:28] LABS: C Reactive Protein 7.96 mg/dl (0-0.5)
--- NOTE | 2024-03-05 11:47 | Hospitalist Progress Note ---
Date of Service March 05, 2024 Assessment & Plan (1) Diverticulitis: Plan: Diagnosed with acute diverticulitis outpatient, started on oral Augmentin However failed outpatient management. Admitted with worsening abdominal pain. A/P CT revealed diverticulitis with mural abscess versus contained perforation No leukocytosis on arrival; however patient reports fevers up to 100 degrees Fahrenheit at home General surgery consulted, no surgical needs for now Continue Ciprofloxacin 400 mg IV q12,Metronidazole 500 mg IV q8h, Will need about 10 to 14 days of antibiotics per surgery Clear liquid diet, advance as tolerated CRP still slightly elevated, will continue to trend (2) Hyperlipidemia: Plan: Continue rosuvastatin Plan Disposition: Continue hospitalization, Awaiting PT evaluation Full code Diet as tolerated VTE PPx: Lovenox 40mg SQ q24h Admission and Anticipated Discharge Date Admission Date: March 03, 2024 Subjective Patient seen and examined, abdominal pain is much improved, having bowel movements, no blood in stool. Review of Systems Review of Systems: All systems reviewed are negative, apart from the ones contained in the history. Physical Exam Physical Exam: The patient is awake, alert and oriented 3, well developed and well nourished, normocephalic and atraumatic, lying in bed and in no acute distress. HEENT--PERRL, EOMI, mucous membranes and oropharynx mildly dry Neck--supple. No JVD. No bruits. Thyroid normal, trachea midline, no adenopathy. Heart--normal S1 and S2. No murmurs, rubs or gallops. Lungs--clear bilaterally, no respiratory distress, no accessory muscle use. Abdomen--normal bowel sounds and soft. Extremities--no cyanosis or clubbing. No edema. Dermatologic--normal skin turgor, normal color, no abnormal lymph nodes, no rash. Neurologic--cranial nerves II through XII grossly intact. Rheumatologic--normal range of motion. Psychiatric--normal affect. Results & Data Results & Data Vital Signs (Past 12 Hours) Vital Signs Temp Pulse Resp BP Pulse Ox O2 Del Method 03/05/24 08:01 98.1 F 65 16 110/64 96 Room Air PG Care Time/CCT Total # of Minutes Spent Total Time Spent with Patient: Total time spent is greater than 50% in coordination of care (as documented) at patient's floor/unit and/or counseling patient: Coding Level of Care Code 19568 SUB INP/OBS CARE MIN Diagnoses Diverticulitis K57.92 Hyperlipidemia E78.5 Time Spent (min) 35
--- NOTE | 2024-03-06 07:45 | Hospitalist Progress Note ---
Date of Service March 06, 2024 Assessment & Plan (1) Diverticulitis: Plan: Diagnosed with acute diverticulitis outpatient, started on oral Augmentin However failed outpatient management. Admitted with worsening abdominal pain. A/P CT revealed diverticulitis with mural abscess versus contained perforation No leukocytosis on arrival; however patient reports fevers up to 100 degrees Fahrenheit at home General surgery consulted, no surgical needs for now Continue Ciprofloxacin 400 mg IV q12,Metronidazole 500 mg IV q8h, Will need about 10 to 14 days of antibiotics per surgery Clear liquid diet, advance as tolerated CRP slightly elevated, will continue to trend 8/6 WBC wnl, afebrile Cipro/Flagyl IV continued, will need 10-14day course (today is day 4) - will extend IV while inpatient as only ordered for 5 days to ensure not dropping off pending continued inpatient stay General surgery on consult/following Full liquid diet continued through today, possible low fiber diet this evening but discussed w/ surgery and will continue full liquid diet as ok w/ patient Cdiff/fecal occult ordered for completeness however given reported red/oragne in stool but suspect from wray malagasy ice x 3/orange jellos and hgb stable. K 3.4, 20meq PO x 1. Mag stable at 1.9 CRP trending down, 6.75 Continued full liquid diet for today but if continued improvement, plans for dc in next 24(or 48hours if needed) on low fiber diet with outpatient follow up PPI once daily for GI proph, can change to PO as taking PO DVT proph: Lovenox SQ (2) Hyperlipidemia: Plan: Continue rosuvastatin -- resumed for AM Plan continued inpatient stay on full liquid diet, hopeful advancement to low fiber diet in AM updated in room regarding plan, patient missing her dog/wanting to go home as soon as able suspect able to dc on PO abx in AM and low fiber diet if no issues overnight. Admission and Anticipated Discharge Date Admission Date: March 03, 2024 Supervising Physician Co-Signing Physician Notes The patient was not seen by me. The chart was reviewed. Case discussed with GINA Loera. Agree with assessment and plan Subjective Evaluated this morning, walking in the room, present. Had bowel movement w/ some reddish color/orange. No upper abdominal pain and did endorse having at least 3 wray Portuguese ice and some orange jello. To avoid/monitor. Hgb stable.' She reports being seen by surgery and to continue full liquid diet for today. No fever/chills, some nausea yesterday morning but none today. Abdomen soft/nontender. She reports he dog is missing her. Discussed possible advancement of diet tomorrow and if feeling well can provide information to continue low fiber diet at dc. Possible dc next 24-48hours pending repeat eval/labs. Questions/concerns addressed at this time. Physical Exam Physical Exam: General: 63yo female walking in the room, present, NAD and reports feeling a little better HEENT: head atraumatic, normocephalic, mmm, trachea midline Resp: even/unlabored, fine bibasilar crackles but no w/r, 98% on RA CV: RRR, no significant m/r/g, no pitting edema/calf tenderness GI: +BS throughout, no overt tenderness to palpation, no guarding/rebound no roberts MSK/Neuro: nonfocal, not confused, answering questions appropriately Psych: AOx3, cooperative with exam Results & Data Results & Data Vital Signs (Past 12 Hours) Vital Signs Temp Pulse Resp BP Pulse Ox O2 Del Method 03/06/24 07:11 37.1 C 59 L 16 126/77 98 Room Air 03/05/24 21:02 37.0 C 61 18 129/74 100 Room Air Laboratory Results 03/06/24 03/05/24 Range/Units 07:49 05:38 WBC 5.04 (4.8-10.8) K/ul RBC 3.66 L (4.20-5.40) M/uL Hgb 10.7 L (12.0-16.0) g/dl Hct 31.9 L (37.0-47.0) % MCV 87.2 (80.0-100.0) fL MCH 29.2 (25.0-34.0) pg MCHC 33.5 (32.0-36.0) g/dL RDW Std Deviation 39.2 (36.4-46.3) fL RDW Coeff of Brad 12.1 (11.5-14.5) % Plt Count 272 (130-400) K/uL MPV 9.9 (9.4-12.4) fL Immature Gran % (Auto) 0.2 % Neut % (Auto) 66.7 % Lymph % (Auto) 21.4 % Knox % (Auto) 10.7 % Eos % (Auto) 0.8 % Baso % (Auto) 0.2 % Neut # (Auto) 3.36 (1.40-6.50) K/uL Lymph # (Auto) 1.08 L (1.20-3.40) K/uL Knox # (Auto) 0.54 (0.11-0.59) K/uL Eos # (Auto) 0.04 (0.00-0.50) K/uL Baso # (Auto) 0.01 (0.00-0.20) K/uL Immature Gran # (Auto) 0.01 (0.01-0.20) K/uL Sodium 137 (136-145) mmol/L Potassium 3.4 L (3.5-5.1) mmol/L Chloride 103 (98-107) mmol/L Carbon Dioxide 28 (21-32) mmol/L Anion Gap 6 (3-11) BUN 5 L (6-23) mg/dl Creatinine 0.79 (0.6-1.2) mg/dl Est Cr Clr Drug Dosing 61.3 ml/min Est GFR ( Amer) 91.0 ml/min Est GFR (Non-Af Amer) 78.6 ml/min BUN/Creatinine Ratio 6.3 L (10-20) Glucose 94 (70-99(Fasting)) mg/dl Calcium 8.5 L (8.6-10.3) mg/dl Magnesium 1.9 (1.7-2.4) mg/dl C-Reactive Protein 6.75 H 7.96 H (0-0.5) mg/dl PG Care Time/CCT Total # of Minutes Spent Total Time Spent with Patient: Total time spent is greater than 50% in coordination of care (as documented) at patient's floor/unit and/or counseling patient: Coding Level of Care Code 81676 SUB INP/OBS CARE 3/50MIN Diagnoses Diverticulitis K57.92 Hyperlipidemia E78.5
[2024-03-06 08:18] LABS: Basophils # (auto) 0.01 K/uL (0.00-0.20); Basophils % (auto) 0.2 %; Eosinophils # (auto) 0.04 K/uL (0.00-0.50); Eosinophils % (auto) 0.8 %; Hematocrit (blood only) 31.9 % (37.0-47.0); Hemoglobin 10.7 g/dl (12.0-16.0); Immature Granulocytes # (auto) 0.01 K/uL (0.01-0.20); Immature Granulocytes % (auto) 0.2 %; Lymphocytes # (auto) 1.08 K/uL (1.20-3.40); Lymphocytes % (auto) 21.4 %; Mean Corpuscular Hemoglobin 29.2 pg (25.0-34.0); Mean Corpuscular Hgb Conc 33.5 g/dL (32.0-36.0); Mean Corpuscular Volume 87.2 fL (80.0-100.0); Mean Platelet Volume 9.9 fL (9.4-12.4); Monocytes # (auto) 0.54 K/uL (0.11-0.59); Monocytes % (auto) 10.7 %; Neutrophils # (auto) 3.36 K/uL (1.40-6.50); Neutrophils % (auto) 66.7 %; Platelet Count 272 K/uL (130-400); RDW Coefficient of Variation 12.1 % (11.5-14.5); RDW Standard Deviation 39.2 fL (36.4-46.3); Red Blood Count 3.66 M/uL (4.20-5.40); White Blood Count 5.04 K/ul (4.8-10.8)
[2024-03-06 08:28] LABS: BUN Creatinine Ratio 6.3 (10-20); C Reactive Protein 6.75 mg/dl (0-0.5); Calcium 8.5 mg/dl (8.6-10.3); Creatinine Clr Calc Pharmacy 61.3 ml/min; Est GFR (Non-African American) 78.6 ml/min; Magnesium 1.9 mg/dl (1.7-2.4); Potassium 3.4 mmol/L (3.5-5.1)
[2024-03-06] MEDS: POTASSIUM CHLORIDE CRTAB 20 MEQ TABCR PO STA (09:40)
--- NOTE | 2024-03-06 10:10 | Surgery Progress Note ---
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 Patient states she had abdominal cramping briefly similar to when this first started that she had not been having. Do not advance diet as of yet. Date of Service March 06, 2024 Assessment & Plan (1) Abdominal pain, lower: Plan: tolerating full liquids, keep on this for today +bm, +flatus LLQ TTP continue iv antibx vss , wbc wnl pt seen and examined with Dr. Warren (2) Diverticulitis: Admission and Anticipated Discharge Date Admission Date: March 03, 2024 Subjective c/o abd discomfort , bloating Passing flatus , having bms denies chills, fevers, n/v Review of Systems Constitutional: no fever and no chills Respiratory: no dyspnea Cardiovascular: no chest pain Gastrointestinal: + abdominal pain and + bloating; no naus ea and no vomiting Physical Exam Constitutional: cooperative and comfortable; no acute distress Respiratory: normal respiratory effort and able to speak in complete sentences; no respiratory distress Cardiovascular: Rate/Rhythm: + bradycardic (59) Gastrointestinal (Abdomen): Inspection/Auscultation: + abdomen distended Percussion/Palpation: + abdomen tender and abdomen soft Results & Data Vital Signs (Past 12 Hours) Vital Signs Temp Pulse Resp BP Pulse Ox O2 Del Method 03/06/24 07:11 98.8 F 59 L 16 126/77 98 Room Air Results CBC w Diff Results: RBC 3.66 M/uL (4.20-5.40) L 03/06/24 WBC 5.04 K/ul (4.8-10.8) 03/06/24 Hgb 10.7 g/dl (12.0-16.0) L 03/06/24 Hct 31.9 % (37.0-47.0) L 03/06/24 MCV 87.2 fL (80.0-100.0) 03/06/24 MCH 29.2 pg (25.0-34.0) 03/06/24 MCHC 33.5 g/dL (32.0-36.0) 03/06/24 RDW Standard Deviation 39.2 fL (36.4-46.3) 03/06/24 RDW Coefficient of Variation 12.1 % (11.5-14.5) 03/06/24 Plt Count 272 K/uL (130-400) 03/06/24 MPV 9.9 fL (9.4-12.4) 03/06/24 Neutrophils (%) (Auto) 66.7 % 03/06/24 Lymphocytes (%) (Auto) 21.4 % 03/06/24 Monocytes # (Auto) 0.54 K/uL (0.11-0.59) 03/06/24 Eosinophils # (Auto) 0.04 K/uL (0.00-0.50) 03/06/24 Immature Granulocyte % (Auto) 0.2 % 03/06/24 Neutrophils # (Auto) 3.36 K/uL (1.40-6.50) 03/06/24 Lymphocytes # (Auto) 1.08 K/uL (1.20-3.40) L 03/06/24 Monocytes # (Auto) 0.54 K/uL (0.11-0.59) 03/06/24 Eosinophils # (Auto) 0.04 K/uL (0.00-0.50) 03/06/24 Basophils # (Auto) 0.01 K/uL (0.00-0.20) 03/06/24 Immature Granulocyte # (Auto) 0.01 K/uL (0.01-0.20) 4 PG Care Time/CCT Total # of Minutes Spent Total Time Spent with Patient: Total time spent is greater than 50% in coordination of care (as documented) at patient's floor/unit and/or counseling patient: Coding Level of Care Code 70940 SUB INP/OBS CARE 125MIN Diagnoses Abdominal pain, lower R10.30 Diverticulitis K57.92
--- NOTE | 2024-03-07 07:41 | Hospitalist Progress Note ---
Date of Service March 07, 2024 Assessment & Plan (1) Diverticulitis: Plan: Diagnosed with acute diverticulitis outpatient, started on oral Augmentin However failed outpatient management. Admitted with worsening abdominal pain. A/P CT revealed diverticulitis with mural abscess versus contained perforation No leukocytosis on arrival; however patient reports fevers up to 100 degrees Fahrenheit at home General surgery consulted, no surgical needs for now Continue Ciprofloxacin 400 mg IV q12,Metronidazole 500 mg IV q8h, Will need about 10 to 14 days of antibiotics per surgery Clear liquid diet, advance as tolerated CRP slightly elevated, will continue to trend 8/6 WBC wnl, afebrile Cipro/Flagyl IV continued, will need 10-14day course (today is day 4) - will extend IV while inpatient as only ordered for 5 days to ensure not dropping off pending continued inpatient stay General surgery on consult/following Full liquid diet continued through today, possible low fiber diet this evening but discussed w/ surgery and will continue full liquid diet as ok w/ patient Cdiff/fecal occult ordered for completeness however given reported red/oragne in stool but suspect from wray jordanian ice x 3/orange jellos and hgb stable. K 3.4, 20meq PO x 1. Mag stable at 1.9 CRP trending down, 6.75 Continued full liquid diet for today but if continued improvement, plans for dc in next 24(or 48hours if needed) on low fiber diet with outpatient follow up PPI once daily for GI proph, can change to PO as taking PO DVT proph: Lovenox SQ 8/ No pain, diet being advanced to low fiber. was discussed w/ prior CLIFTON and could have advanced last evening but patient ok w/ continuing full liquid As long as no issues, will plan to dc today on Cipro/Flagyl to complete course on low fiber diet. (2) Hyperlipidemia: Plan: Continue rosuvastatin -- resumed for AM Plan continued inpatient stay on full liquid diet, hopeful advancement to low fiber diet in AM updated in room regarding plan, patient missing her dog/wanting to go home as soon as able suspect able to dc on PO abx in AM and low fiber diet if no issues overnight. Admission and Anticipated Discharge Date Admission Date: March 03, 2024 Results & Data Results & Data Vital Signs (Past 12 Hours) Vital Signs Temp Pulse Resp BP Pulse Ox O2 Del Method 03/06/24 21:44 36.6 C 62 16 133/80 96 Room Air PG Care Time/CCT Total # of Minutes Spent Total Time Spent with Patient: Total time spent is greater than 50% in coordination of care (as documented) at patient's floor/unit and/or counseling patient: Coding Diagnoses Diverticulitis K57.92 Hyperlipidemia E78.5
[2024-03-07 08:15] LABS: C Reactive Protein 5.61 mg/dl (0-0.5); Calcium 8.9 mg/dl (8.6-10.3); Creatinine Clr Calc Pharmacy 64.6 ml/min; Est GFR (African American) 96.9 ml/min; Est GFR (Non-African American) 83.6 ml/min; Potassium 3.9 mmol/L (3.5-5.1)
[2024-03-07] MEDS: ROSUVASTATIN CALCIUM 20 MG TAB PO SCH (08:24)
[2024-03-07 08:29] VITALS: BP 130/82; PULSE 60; RESP 19; TEMP 98.2; O2SAT 98
--- NOTE | 2024-03-07 09:13 | Discharge Summary ---
Discharge Summary Date of Service March 07, 2024 Principal Dx & Hospital Course #1 = Principal Diagnosis (1) Diverticulitis: 63yo female w/ hx diverticulitis presented initially to outpatient PCP and CTAP c/w diverticulitis and placed on Augmentin however failed outpatient management and admitted for worsening abdominal pain CTAP on admission w/ diverticulitis with mural abscess versus contained perforation General surgery consulted, conservative management Placed on IV antibiotics with Cipro/Flagyl, IVF and pain control/bowel rest and was advanced from clear liquid--> full liquid and continued full liquid on 03/06 with advancement to low fiber 03/07 without increased pain/nausea/vomiting or fever/leukocytosis and discussed with surgery ok to discharge on low fiber diet and Cipro/Flagyl PO to complete the course Prior electrolyte abnormalities addressed/replaced and remaining stable with advancement of diet and CRP trending down. Continued to move bowels, feeling well for discharge. Discussed will need repeat c-scope as outpatient once resolved from episode. Patient aware. Prior done in 2021 w/ Dr Case and should have f/u [facility]. muck hauler consult placed prior to dc to ensure follow up arranged. DVT proph while in the hospital with Lovenox SQ (2) Hyperlipidemia: Resumed/continued crestor (3) Hypokalemia: 2nd to above, replaced/resolved 3.9 prior to discharge Plan discharged home on CIpro/Flagyl PO to complete 14 day course. Low fiber diet x 2 weeks then advance as tolerated. Outpatient GI f/u for repeat scope to r/o underlying lesion Notes For Next Care Provider Ensure GI follow up for repeat c-scope once resolved from acute diverticulitis Medication Changes From Visit Augmentin discontinued Cipro/Flagyl PO x 14 total day course at dc Admission HPI Per Admitting Provider Brianne is a pleasant 63-year-old female with PMH of rectocele, esophageal reflux, diverticulosis, hyperlipidemia, and lichen simplex chronicus. She presented for worsening abdominal pain that has been present since Sunday 02/25. The pain is located in her right lower abdomen transversely across both quadrants. It began as abdominal discomfort, but has gradually worsened. She went to the doctors on Tuesday 02/27 and was prescribed Augmentin. However there might have been a mixup at the pharmacy as she has been taking amoxicillin twice daily. Patient then began to develop fevers on Thursday 03/01 (low-grade, around 100 F). Patient has been taking Tylenol which helps with with the fever and abdominal cramping. She does have a history of diverticulitis in the past; last episode was in 2018. She rates her abdominal pain 0/10 at present, but 8/10 at worst. The pain waxes and wanes, and she characterizes as a "childbirth"-like cramping. Pain is exacerbated after eating and when she lays on her right side. No history of abdominal surgeries. Patient is still passing gas. Last BM was yesterday; she reports she had small/hard stool. She has had ongoing constipation. Patient denies smoking, tobacco use, recent alcohol use. Patient's vitals are stable at time of mission. ED course: Zosyn 4.5 g IV ROS: Patient endorses intermittent fever, chills, fatigue, WHITE, dry cough, low transverse abdominal pain, constipation, and bloating. Patient denies night-sweats, dizziness, lightheadedness, chest pain, SOB, chest palpitations, N/V/D, changes in urinary habits, burning with urination, or blood in the urine/stool. Admission Exam Per Admitting Provider General: no acute distress; pleasant affect; non-toxic appearing; well- nourished; cooperative; SpO2 95% on RA HEENT: normocephalic, atraumatic; no scleral icterus; PERRLA w/ EOMs intact; vision and hearing grossly intact Neck: supple; no lymphadenopathy; trachea midline Skin: warm, dry without signs of tenting; no cyanosis; no rashes, bruising, lesions, or erythema noted CV: chest wall NTP; RRR; S1/S2 normal; no murmurs/rubs/gallops; pulses intact and symmetric at radial, DP, and PT Lungs: no acute respiratory distress; symmetrical chest wall expansion; clear breath sounds across all lung giordano w/o adventitious sounds; no wheezing ABD: Soft; RLQ and LLQ are TTP: BS present; no rebound/guarding; no distention MSK: no tics or fasciculations; no edema noted in the LEs b/l, nonerythematous Neuro: A&Ox3; normal mood and affect; fluent speech; no focal deficits; sensation grossly intact in the LEs b/l Discharge Exam General: 63yo female sitting up in bed, smiling, NAD, excited for possible discharge HEENT: head atraumatic, normocephalic, mmm, trachea midline Resp: even/unlabored, fine bibasilar crackles but no w/r, 98% on RA CV: RRR, no significant m/r/g, no pitting edema/calf tenderness GI: +BS throughout, no overt tenderness to palpation, no guarding/rebound no roberts MSK/Neuro: nonfocal, not confused, answering questions appropriately Psych: AOx3, cooperative with exam Updated Medication List Medication Instructions Recorded Confirmed Type cholecalciferol (vitamin D3) 50 2,000 unit PO QAM 10/11/18 03/03/24 History mcg (2,000 unit) capsule (Vitamin D3) cyanocobalamin (vitamin B-12) 500 500 mcg PO QAM 07/22/21 03/03/24 History mcg tablet diclofenac sodium 1 % topical gel 2 g topical QID PRN pain #100 grams 05/04/22 03/03/24 Rx (Arthritis Pain (diclofenac)) melatonin 3 mg tablet 5 mg PO HS 09/02/22 03/03/24 History rosuvastatin 20 mg tablet 20 mg PO DAILY #90 tabs 04/07/23 03/03/24 Rx amoxicillin 875 mg-potassium 1 tab PO BID 10 days #20 tabs 02/28/24 03/03/24 Rx clavulanate 125 mg tablet ciprofloxacin HCl 500 mg tablet 500 mg PO BID 7 days #14 tabs 03/07/24 Rx metronidazole 500 mg tablet 500 mg PO Q8H 7 days #21 tabs 03/07/24 Rx Hospital Stay Data Consultations 03/03/24 14:17 ED Decision to Admit Stat 03/04/24 07:38 Consult General Surgery Routine 03/07/24 09:11 Consult [facility] muck hauler Routine Diagnostic Imagining Performed Abdomen/Pelvis CT 03/03/24 10:56 CT abd pelvis oral and IV con CLINICAL HISTORY: L abd pain, diverticulitis on recent ct. ?Abscess TECHNIQUE: Helical axial images of the abdomen and pelvis were obtained and displayed. Automated dose lowering techniques and/or adjustment according to patient size were utilized for this exam. This exam was performed with intravenous contrast. CT DOSE: 701. mGy.cm COMPARISON: Comparison is made to CT abdomen pelvis 02/28/2024 FINDINGS: Lower chest: No acute abnormality. Liver: Focal fatty changes are noted about the falciform ligament. Gallbladder and biliary tree: A phrygian cap is incidentally noted. Gallbladder is otherwise unremarkable. No intra- or extrahepatic biliary ductal dilation. Pancreas: Unremarkable, no focal lesions. Spleen: Unremarkable. Adrenals: Unremarkable. Kidneys and ureters: Unremarkable. Bladder: Diffuse homogeneous wall thickening is seen. Reproductive organs: Unremarkable. Bowel: Diverticulosis is seen with wall thickening and a pericolonic fluid collection with surrounding fat stranding in the sigmoid flexure. The appendix is normal. Lymph nodes Retroperitoneal: Unremarkable. Pelvic: Unremarkable. Mesenteric: Unremarkable. Peritoneum: Increased vascularity and fat stranding is seen in the pelvis. There is a 28 x 16 mm fluid collection superior to the inflamed diverticulum in the sigmoid colon. Vessels: Unremarkable. Abdominal wall: Unremarkable. Bones: Degenerative changes in the visualized spine. IMPRESSION: Findings compatible with diverticulitis, now with a mural abscess versus contained perforation. ACT 112: Negative or not required by law. Electronically signed by: Ramu Moreland M.D. 03/03/2024 1:33 PM Pending Results Patient Have Any Pending Studies at Discharge: No Discharge Instructions Given to Patient (Per Discharging Provider) You have been hospitalized after failure of outpatient antibiotics for d iverticulitis and found to have small abscess on imaging. General surgery was consulted and thankfully able to manage this conservatively with bowel rest, IV fluids, pain control and IV antibiotics. Stool study was NEGATIVE for blood and this was likely from the wray/orange colored macedonian ice/jellos and hemoglobin levels stayed stable. At discharge, you should continue a low fiber diet for the next 2 weeks then advance as tolerated. Information for low fiber diet has been provided. You will continue CIPROFLOXACIN and METRONIDAZOLE for continued antibiotics for total 14 day course given the diverticulitis with abscess. You have another 7 days of treatment. Please do not drink alcohol while on metronidazole as this can cause excessive vomiting. Monitor for any increased/significant diarrhea on antibiotics and alert your primary care if this occurs. You should follow up with primary care in the next 7-10 days to monitor your progress from discharge. You should have repeat colonoscopy after this acute episode is resolved. Please return to the ER with any increased pain, fever, inability to keep up with oral hydration or for any other symptoms concerning for you. It has been a pleasure being a part of the medical team providing for you while you have been in the hospital. Take care! Total Time Total Time Spent Total Time Spent (In Minutes): 45 Supervising Physician Co-Signing Physician Notes The patient was not seen by me. The chart was reviewed. Case discussed with GINA Loera. Agree with assessment and plan Coding Level of Care Code 76507 INP/OBS DISCH >30 MIN Diagnoses Diverticulitis K57.92 Hyperlipidemia E78.5 Hypokalemia E87.6
[2024-03-07] MEDS: PANTOprazole 40 MG TAB PO SCH (10:43)
--- NOTE | 2024-03-07 11:12 | Surgery Progress Note ---
<Statement entered by Jany Warren DO - 03/07/24 11:52> I have seen and examined this patient with the surgical PA this am. I agree with the plan. Date of Service March 07, 2024 Assessment & Plan (1) Diverticulitis: Plan: Pt recovering well from her diverticulitis Vitals stable and pt afebrile Tolerating diet advancement to low fiber Denies pain. nausea. vomiting Abdomen soft, non tender Okay for D/C from our perspective, complete full course of abx tx as o/p on orals Recommend f/u with her PCP within 1 week to check symptoms, if any concerns can consider repeat CT at that time and f/u with us Admission and Anticipated Discharge Date Admission Date: March 03, 2024 Subjective Patient reports feeling much better. Tolerating diet advancement, had some low fiber meal for bfast without issues. Pain improved. No nausea/vomiting. + bowel function Physical Exam Physical Exam: awake/alert, no distress Respiratory: normal respiratory effort Gastrointestinal (Abdomen): Inspection/Auscultation: abdomen not distended Percussion/Palpation: abdomen soft; abdomen nontender Results & Data Vital Signs (Past 12 Hours) Vital Signs Temp Pulse Resp BP Pulse Ox O2 Del Method 03/07/24 08:27 98.2 F 60 19 130/82 98 Room Air PG Care Time/CCT Total # of Minutes Spent Total Time Spent with Patient: Total time spent is greater than 50% in coordination of care (as documented) at patient's floor/unit and/or counseling patient: Coding Level of Care Code 78017 SUB INP/OBS CARE 08/25MIN Diagnoses Diverticulitis K57.92
== END 2024-03-07 11:55 | disposition home or self-care (01) | DRG 392 ==
LOC: ED 10:28 → 3E 14:45 → SUATTDRO 14:45 → 3E 16:22